=== PATIENT | female | born 1935 | race Caucasian/White ===

== ENCOUNTER → 2016-03-18 | Outpatient (CLI) | payer MEDICARE, OTHER ==
[~2016-03-18] MED LIST: ATOR10TA PO; AZIT250T81 PO; BISO1TAB37 PO; CALC600T12 PO; ERGO400T3 PO; NF-VAL40T PO; RANI150T15 PO; SPRN25T PO
[2016-03-18 18:04] VITALS: BP 132/87
--- NOTE | 2016-03-18 18:04 | Urgent Care T Sheet Gen (E) ---
Intake General Temperature (Fahrenheit): 100.2 Pulse: 85 Blood Pressure Systolic: 132 Blood Pressure Diastolic: 87 Respirations: 20 SPO2: 94 Description of Symptoms Patient presents with sudden onset of illness since yesterday. Notes cough, chest congestion and chills. Patient doesn't feel very achy however states she feels weak. No meds to treat her symptoms. History of Present Illness Home Meds Active Scripts Azithromycin (Zithromax Z-Joey)6 Tab/Pkt [id number] Mg PO SEE INSTRUCTIONS #6 TAB Ref 0 Day One: Take 2 tablets by mouth Days Two-Five: Take 1 tablet by mouth Prov:ALBA CHENG 03/18/16 Reported Medications Ranitidine HCl (Zantac)150 Mg [id number] Mg PO BID 05/20/15 Calcium Carbonate (Calcium)600 Mg Tablet1,800 Mg PO DAILY 05/20/15 Ergocalciferol (Vitamin D2) (Vitamin D)400 Unit [id number] Unit PO DAILY 05/20/15 Spironolactone 25 Mg [id number] Mg PO DAILY 05/20/15 Atorvastatin (Lipitor)10 Mg Tablet5 Mg PO HS 05/20/15 Valsartan (Diovan)40 Mg [id number] Mg PO DAILY 05/20/15 Bisoprolol Fumarate/HCTZ (Ziac 10-6.25 mg)1 Each Tablet1 Each PO DAILY 05/20/15 Respiratory Constitutional Symptoms: Fever Malaise EENTM: No symptoms reported Respiratory: Cough Short of breathNo Wheezing Cardiovascular: No symptoms reported Gastrointestinal/Abdominal: No symptoms reported All Other Systems Reviewed Remaining Systems: All other systems reviewed with negative findings Past Kacmjdj-Snymzn-Udmqxp Hx Surgeries/Hospitalizations Hospitalization/Surgery Hx: LEFT MASTECTOMY Respiratory Respiratory History: SOB Cardiovascular Cardiovascular History: Hypertension, Hypercholesterolemia Neuro/Muscular Neuro/Muscular History: Visual impairment Gastrointestinal GI/Endocrine History: Heartburn, GERD Physical Exam Physical Exam General Appearance: WD/WN No apparent distress (does appear ill) Eyes, Ears, Nose, Throat Ex: TMs normal Pharynx normal Other (nose is clear) Neck Exam: SuppleNo Lymphadenopathy Respiratory Exam: Lungs clear (dry, irritated cough during exam.) Normal breath sounds Cardiovascular Exam: Regular rate, rhythm Progress/Orders Lab Results Labs Results: Influenza A/B (A negative, B negative) Departure Urgent Care Impression Impression: Primary Impression: Cough Additional Impression: Malaise Departure Disposition: 01 HOME OR SELF-CARE Condition: Stable Referrals: GIO SOLOMON MD (PCP) Additional Instructions: Long discussion with patient regarding treatment. With her sudden onset of illness, I wanted to rule out influenza, even though she had a flu shot. Test was negative. The patient's lungs were clear however she had a persistent cough during exam. Her O2 saturation wouldn't move any higher than 94%. She is unsure what her readings normally run. With her malaise, cough and low O2 saturation, I have opted to start her on a Z- Pack. patient states she has taken that in the past and has had success. Suggested she rest, push fluids, and take Tylenol as needed for fever/aches. Suggested she f/u with Dr Solomon. Return as needed Patient understands DC instructions. All questions were answered. Scripts Azithromycin (Zithromax Z-Joey)6 Tab/Pkt [id number] Mg PO SEE INSTRUCTIONS #6 TAB Ref 0 Day One: Take 2 tablets by mouth Days Two-Five: Take 1 tablet by mouth Prov:ALBA CHENG 03/18/16 End of report . ALBA CHENG Mar 18, 2016 17:33
== END ==
LOC: MHUC 16:53
PROVIDERS: ATTEND Physician Assistant
DX: R05 Cough (principal); R53.81 Other malaise
CPT/HCPCS: 99213